=== PATIENT | male | born 1970 | race Caucasian/White ===

== ENCOUNTER 2018-11-24 11:57 | Emergency (ER) | payer OTHER ==
[2018-11-24] MEDS ORDERED: LORazepam TAB(*) 1 MG PO ONE (12:38)
[2018-11-24] MEDS ORDERED: Ketorolac INJ* 30 MG/ML 1 ML VIAL IM ONE (12:38)
--- NOTE | 2018-11-24 12:40 | ED ---
Back Pain - HPI Summary HPI Summary: This patient is a 48 year old male presenting to [facility] with a chief complaint of chronic back pain since yesterday morning. He states the pain radiates to his obliques. He rates his pain 10/10 in severity. He states the pain in at his right flank. He says he cannot enough move to much and when he coughs to clear his throat the pain worsens. He had injections 2 days ago due to a repeated pinched nerve in his lower back after a traumatic accident. He denies weakness in his legs and dysuria. - History of Current Complaint Chief Complaint: EDBackInjuryPain Stated Complaint: BACK PAIN PER EMS Time Seen by Provider: 11/24/18 12:03 Hx Obtained From: Patient Onset/Duration: Lasting Days Onset/Duration: Started Days Ago Timing: Constant Severity Initially: Severe Severity Currently: Severe Pain Intensity: 10 Pain Scale Used: 0-10 Numeric Alleviating Symptom(s): Position - Allergies/Home Medications Allergies/Adverse Reactions: Allergies Allergy/AdvReac Type Severity Reaction Status Date / Time No Known Allergies Allergy Verified 11/24/18 12:05 PMH/Surg Hx/FS Hx/Imm Hx Endocrine/Hematology History: Denies: Hx Diabetes Musculoskeletal History: Reports: Hx Back Problems - Chronic back pain, Hx of Fracture(s) - Ankle, Hip Infectious Disease History: No Infectious Disease History: Denies: Traveled Outside the [place] in Last 30 Days - Family History Known Family History: Negative: Cardiac Disease - Social History Alcohol Use: Occasionally Hx Substance Use: No Review of Systems Negative: dysuria Positive: Other - Back pain Negative: Weakness All Other Systems Reviewed And Are Negative: Yes Physical Exam - Summary Physical Exam Summary: Appearance: The patient is well-nourished in no acute distress and in no acute pain. Skin: The skin is warm and dry and skin color reflects adequate perfusion. HEENT: The head is normocephalic and atraumatic. The pupils are equal and reactive. The conjunctivae are clear and without drainage. Nares are patent and without drainage. Mouth reveals moist mucous membranes and the throat is without erythema and exudate. The external ears are intact. The ear canals are patent and without drainage. The tympanic membranes are intact. Neck: The neck is supple with full range of motion and non-tender. There are no carotid bruits. There is no neck vein distension. Respiratory: Chest is non-tender. Lungs are clear to auscultation and breath sounds are symmetrical and equal. Cardiovascular: Heart is regular rate and rhythm. There is no murmur or rub auscultated. There is no peripheral edema and pulses are symmetrical and equal. Abdomen: The abdomen is soft and non-tender. There are normal bowel sounds heard in all four quadrants and there is no organomegaly palpated. Musculoskeletal: Tenderness in his right sciatic area and paralumbar area. Positive straight leg raise at 10 degrees on the right. Extremities are non-tender with full range of motion. There is good capillary refill. There is no peripheral edema or calf tenderness elicited. Neurological: Patient is alert and oriented to person, place and time. The patient has symmetrical motor strength in all four extremities. Cranial nerves are grossly intact. Deep tendon reflexes are symmetrical and equal in all four extremities. Neurovascular motor intact distally. Psychiatric: The patient has an appropriate affect and does not exhibit any anxiety or depression. Triage Information Reviewed: Yes Vital Signs On Initial Exam: Initial Vitals Temp Pulse Resp BP Pulse Ox 98 F 75 16 118/77 93 11/24/18 12:03 11/24/18 12:03 11/24/18 12:03 11/24/18 12:03 11/24/18 12:03 Vital Signs Reviewed: Yes Diagnostics - Vital Signs Vital Signs Temp Pulse Resp BP Pulse Ox 11/24/18 12:03 98 F 75 16 118/77 93 - Laboratory Result Diagrams: 11/24/18 12:52 11/24/18 12:52 Lab Statement: Any lab studies that have been ordered have been reviewed, and results considered in the medical decision making process. - CT Spine Lumbar CT Interpretation Completed By: Radiologist Summary of CT Findings: Negative for fracture. Multilevel acquired central canal and foraminal stenosis as described with significant interval worsening. ED Provider has reviewed this report. Re-Evaluation - Re-Evaluation First Eval Re-Evaluation Time: 15:14 Comment: Discussed results and plan for treatment and discharge with patient. Back Pain Course/Dx - Course Course Of Treatment: Mr. Cabrera presented to the emergency department complaining of severe right-sided low back pain. He has a long history of low back pain bilaterally but of concerning note he had an injection of cortisone 2 days ago. He was nontoxic in appearance with stable vital signs and his exam was consistent with a musculoskeletal pain/radicular pain but I was concerned for possible infection given the recent manipulation. He was afebrile without a leukocytosis or elevation of his CRP and this was reassuring. He did improve a lot with Ativan as a muscle relaxer as well as Toradol for inflammation. I recommended we give him Ativan for couple days as a muscle relaxer and have him follow up first of the week with his PCP. He had the injection down in [place] and is unable to get back there. - Diagnoses Provider Diagnoses: Lumbar radiculopathy, Back pain Discharge - Sign-Out/Discharge Documenting (check all that apply): Patient Departure - Discharge Patient Received Moderate/Deep Sedation with Procedure: No - Discharge Plan Condition: Stable Disposition: HOME Prescriptions: LORazepam TAB(*) [Ativan TAB(*)] 1 mg PO Q6H PRN #20 tab MDD 4 PRN Reason: Pain Patient Education Materials: Lumbar Radiculopathy (ED), Back Pain (ED) Referrals: Kai Jefferson MD [Medical Doctor] - 2 Days Additional Instructions: Return to ED with any new or worsening symptoms. - Billing Disposition and Condition Condition: STABLE Disposition: Home - Attestation Statements Document Initiated by Scribe: Yes Documenting Scribe: Jaydon Barrera Provider For Whom Rossy is Documenting (Include Credential): Kong Yañez MD Scribe Attestation: Jaydon Santamaria, scribed for Kong Yañez MD on 11/24/18 at 1713. Scribe Documentation Reviewed: Yes Provider Attestation: The documentation as recorded by the Jaydon harris accurately reflects the service I personally performed and the decisions made by me, Kong Yañez MD Status of Scribe Document: Viewed
[2018-11-24 13:00] LABS: ABS Basophils 0 10^3/ul (0-0.2); ABS Eosinophils 0.2 10^3/ul (0-0.6); ABS Lymphocytes 2.7 10^3/ul (1.0-4.8); ABS Monocytes 0.4 10^3/ul (0-0.8); ABS Neutrophils 5.5 10^3/ul (1.5-7.7); ABS Nucleated RBC 0 10^3/ul; Eosinophil % 2.4 %; Hematocrit 45 % (36-46); Hemoglobin 15.5 g/dL (14.0-18.0); Lymphocyte % 30.7 %; Mean Corpuscular HGB Conc 34 g/dL (31-36); Mean Corpuscular Hemoglobin 31 pg (27-31); Mean Corpuscular Volume 90 fL (80-94); Mean Platelet Volume 8.2 fL (7.4-10.4); Nucleated Red Blood Cells % 0.1; Platelet Count 196 10^3/uL (150-450); Red Blood Count 5.07 10^6 /uL (4.18-5.48); Red Cell Distribution Width 13 % (10.5-15); White Blood Count 8.9 10^3/uL (3.5-10.8)
[2018-11-24 13:10] LABS: INR 0.92 (0.77-1.02)
[2018-11-24 13:22] LABS: Albumin 4.2 g/dL (3.2-5.2); Albumin/Globulin Ratio 1.6 (1-3); BUN/Creatinine Ratio 17.7 (8-20); C Reactive Protein 2.6 mg/L (<8.01); Calcium 9.2 mg/dL (8.6-10.3); EGFR African American 83.1 (>60); EGFR Non-African American 68.7 (>60); Globulin 2.6 g/dL (2-4); Potassium 4.1 mmol/L (3.5-5.0); Total Bilirubin 1.1 mg/dL (0.2-1.0); Total Protein 6.8 g/dL (6.4-8.9)
[2018-11-24 15:28] LABS: Urine Appearance Clear; Urine Bilirubin Negative (Negative); Urine Blood Negative (Negative); Urine Color Yellow; Urine Glucose Negative (Negative); Urine Ketones Negative (Negative); Urine Nitrite Negative (Negative); Urine Protein Negative (Negative); Urine Urobilinogen Negative (Negative)
[2018-11-24 15:31] VITALS: BP 100/77
== END 2018-11-24 15:30 | disposition home or self-care (01) ==
LOC: ED 11:57
DX: M54.16 Radiculopathy, lumbar region (principal); M54.5 Low back pain
CPT/HCPCS: 36415; 72131; 80053; 81003; 83605; 85025; 85610; 86140; 87040; 96372; 99282; A9270-GY; J1885